=== PATIENT | female | born 1980 | race Caucasian/White ===

== ENCOUNTER 2016-10-04 19:35 | Emergency (ER) | payer OTHER ==
[~2016-10-04] VITALS: Ht 167.6 cm; Wt 59.4 kg
[~2016-10-04 19:35] MED LIST: FERR1TAB23 PO; OMEG10007 PO; PRC10 PO; PRENTAB26 PO
[2016-10-04 19:38] VITALS: TEMP 36.9; Ht 167.6 cm; Wt 59.4 kg
[2016-10-04] MEDS ORDERED: ONDANSETRON INJ 2 MG/ML 2 ML VIAL IV STA (20:11)
[2016-10-04] MEDS ORDERED: SODIUM CHLORIDE 0.9% 1000ML 1,000 ML IV ONE (20:15)
[2016-10-04] MEDS ORDERED: ACETAMINOPHEN IV 100 ML IV ONE (20:15)
[2016-10-04] MEDS ORDERED: OPTIRAY 320 IV PRN (20:30)
[2016-10-04 20:42] LABS: BASO % 0.3 %; BASO ABS # 0.03 K/uL (0-0.2); COMPLETE YES; EOS % 1.3 %; HEMATOCRIT 39.4 % (37-47); IG% 0.1 %; MEAN CELL VOLUME 89.7 fL (80-100); MEAN CORPUSCULAR HEMOGLOBIN 30.3 pg (25-34); MEAN CORPUSCULAR HGB CONC 33.8 g/dl (32-36); MONO % 5.8 %; NEUT % 67.5 %; PLATELET COUNT 398 K/uL (130-400); RED BLOOD COUNT 4.39 M/uL (4.2-5.4); WHITE BLOOD COUNT 10.02 K/uL (4.8-10.8)
[2016-10-04 21:03] LABS: BUN/CREATININE RATIO 9.3 (10-20); CALCIUM 8.7 mg/dl (8.5-10.1); CREATININE 0.81 mg/dl (0.60-1.20); POTASSIUM 3.6 mmol/L (3.5-5.1)
[2016-10-04 21:14] LABS: ALB/GLOB RATIO 0.9 (0.9-2); THYROID STIMULATING HORMONE 0.609 uIu/ml (0.300-4.500)
[2016-10-04 21:34] LABS: LYME DISEASE AB IGG NEG (NEG); LYME DISEASE AB IGM NEG (NEG)
--- NOTE | 2016-10-04 21:55 | DIAGNOSTIC IMAGING REPORT ---
CT ANGIOGRAPHY HEAD COMBO CT DOSE: 1108.64 mGy.cm CLINICAL HISTORY: Severe headache. Neck pain. TECHNIQUE: Unenhanced images were obtained to the brain. CT angiography was then performed in a dynamic helical fashion during intravenous administration 110 cc of Optiray 320. MIP imaging was obtained. COMPARISON STUDY: None. FINDINGS: On noncontrast images, no intra or extra-axial mass lesions are visualized. There is no CT evidence of acute cortical infarction. There is no midline shift. There is no acute hemorrhage. There is no hydrocephalus. On postcontrast images, there are no lesion suspicious for aneurysm. There are no major intracranial branch occlusions. There are no pathologically enhancing masses. There is no evidence of dural venous sinus thrombosis. IMPRESSION: Normal study Electronically signed by: Best Dickson M.D. 10/04/2016 9:54 PM Dictated Date/Time: 10/04/2016 9:50 PM
--- NOTE | 2016-10-04 21:59 | DIAGNOSTIC IMAGING REPORT ---
CT NECK ANGIO WITH CONTRAST CLINICAL HISTORY: Severe neck pain. COMPARISON STUDY: No previous studies for comparison. TECHNIQUE: CT angiography was performed from the aortic arch to the skull base. MIP imaging was performed. The patient was scanned in a dynamic helical fashion during intravenous administration of 110 cc of Optiray 320. CT DOSE: Technique: CT angiogram of the carotid and vertebral arteries was obtained using intravenous contrast and 3-D reconstruction. NASCET criteria was utilized. Findings: The a sitting thoracic aorta measures 3.7 cm in diameter. No intimal flap is visualized. The right carotid revealed no evidence of aneurysm and no evidence of dissection. There is no evidence of hemodynamic significant stenosis. The left carotid revealed no evidence of hemodynamic significant stenosis. There is no evidence of aneurysm. There is no evidence of dissection. There is no evidence of hemodynamically significant vertebral stenosis. There is no evidence of vertebral dissection. The examination is mildly compromised due to motion artifact. IMPRESSION: No evidence of hemodynamically significant carotid or vertebral artery stenosis. No evidence of dissection. Electronically signed by: Best Dickson M.D. 10/04/2016 9:57 PM Dictated Date/Time: 10/04/2016 9:54 PM
[2016-10-04 22:04] LABS: MANUAL MICROSCOPIC REQUIRED? NO; REVIEW REQ? NO; URINE APPEARANCE CLEAR (CLEAR); URINE BILIRUBIN NEG (NEG); URINE COLOR YELLOW; URINE EPITHELIAL CELL AUTO 0-5 /lpf (0-5); URINE NITRITE NEG (NEG); URINE SPECIFIC GRAVITY 1.029 (1.000-1.030); UROBILINOGEN NEG (NEG); ZZUR CULT IF INDIC CLEAN CATCH NO
[2016-10-04] MEDS ORDERED: KETOROLAC TROMETHAMINE 30 MG/ML VIAL IV STA (22:31)
[2016-10-04 23:38] VITALS: BP 157/99; PULSE 58; O2SAT 97
[2016-10-05] MEDS ORDERED: ONDANSETRON HOME PACK 4MG OD TAB PO ONE
[2016-10-05] MEDS ORDERED: OXYCODONE IR HOME PACK PO ONE
--- NOTE | 2016-10-05 01:18 | EMERGENCY ROOM VISIT NOTE ---
History First contact with patient: 19:44 Chief Complaint: HEADACHE Stated Complaint: SEVERE HEADACHE AND NECK PAIN History of Present Illness The patient is a 35 year old female who presents to the Emergency Room with complaints of severe headache for the past one day. The patient does not have a history of headaches in the past. She has not had relief of symptoms at home with [id number] analgesics. She states that her pain goes over the top of her head and down into the bilateral neck posteriorly. She does not have injury or trauma. No photophobia, lightheadedness, dizziness, or vision changes. She has not had fever or chills. She went to an urgent care clinic, who diagnosed her with a tension headache, however she continued to have pain and now presents to the ER for evaluation. The patient does not have numbness or paresthesias. She considers herself otherwise usually healthy. She rates her discomfort an 8/10. Review of Systems More than 10 systems were reviewed and otherwise negative with the exception of history of present illness. Past Medical/Surgical History Medical Problems: (1) contractions (2) Vaginal bleeding during , antepartum Family History No pertinent family history Social History Smoking Status: Never Smoker Housing Status: lives with family Current/Historical Medications No Active Prescriptions or Reported Meds Allergies Coded Allergies: Banana (Verified Allergy, Mild, GI SYMPTOMS, 02/17/16) vomiting Latex1 -Allergic Contact Dermititis (Verified Allergy, Mild, RASH, ) Pineapple (Verified Allergy, Unknown, GI SYMPTOMS, 02/17/16) vomiting with fresh pineapple Broccoli (Verified Adverse Reaction, Mild, GI SYMPTOMS, 02/17/16) vomiting Physical Exam Vital Signs Date Time Temp Pulse Resp B/P (MAP) Pulse Ox O2 Delivery O2 Flow Rate FiO2 10/04/16 23:38 58 18 157/99 97 Room Air 10/04/16 21:38 62 18 145/86 100 Room Air 10/04/16 19:38 36.9 74 18 155/102 98 Room Air Pain Rating (0-10): 7.0 Physical Exam VITALS: Vitals are noted on the nurse's note and reviewed by myself. Vital signs stable. GENERAL: Well-developed, well-nourished, white female, who is in no acute distress and resting comfortably. Patient is cooperative with the examination. HEAD: Normocephalic atraumatic. EARS: External ear normal. External auditory canals clear, tympanic membranes pearly [place] without erythema or effusion bilaterally. EYES: Pupils equal round and reactive to light and accommodation. Conjunctivae without injection, sclerae without icterus. Extraocular movements intact. No photophobia NOSE: Patent, turbinates without inflammation or discharge. MOUTH: Mucous membranes moist. Tonsils are not enlarged. Pharynx without erythema, blood, or exudate. Uvula midline. Airway patent. NECK: Supple without nuchal rigidity. No lymphadenopathy. No thyromegaly. Cervical spine is nontender. No meningismus. Negative Brudzinski's and Kernig' s. HEART: Regular rate and rhythm without murmurs gallops or rubs. LUNGS: Clear to auscultation bilaterally without wheezes, rales or rhonchi. No retractions or accessory muscle use. ABDOMEN: Positive normal bowel sounds x 4. Soft, nontender, without masses or organomegaly. No guarding or rebound tenderness. MUSCULOSKELETAL: No muscle atrophy, erythema, or edema noted. Full range of motion without joint tenderness in all extremities. No tenderness to palpation. Normal gait. Strength 5/5 throughout. NEURO: Patient was alert and oriented to person place and time. CN II through XII grossly intact. Deep tendon reflexes 2+ throughout. No focal neurological deficits SKIN: The skin was without rashes, erythema, edema, or bruising. Capillary reflex less than 2 seconds. Medical Decision & Procedures ER Provider Diagnostic Interpretation: CT NECK ANGIO WITH CONTRAST CLINICAL HISTORY: Severe neck pain. COMPARISON STUDY: No previous studies for comparison. TECHNIQUE: CT angiography was performed from the aortic arch to the skull base. MIP imaging was performed. The patient was scanned in a dynamic helical fashion during intravenous administration of 110 cc of [address] DOSE: Technique: CT angiogram of the carotid and vertebral arteries was obtained using intravenous contrast and 3-D reconstruction. NASCET criteria was utilized. Findings: The a sitting thoracic aorta measures 3.7 cm in diameter. No intimal flap is visualized. The right carotid revealed no evidence of aneurysm and no evidence of dissection. There is no evidence of hemodynamic significant stenosis. The left carotid revealed no evidence of hemodynamic significant stenosis. There is no evidence of aneurysm. There is no evidence of dissection. There is no evidence of hemodynamically significant vertebral stenosis. There is no evidence of vertebral dissection. The examination is mildly compromised due to motion artifact. IMPRESSION: No evidence of hemodynamically significant carotid or vertebral artery stenosis. No evidence of dissection. CT ANGIOGRAPHY HEAD COMBO CT DOSE: 1108.64 mGy.cm CLINICAL HISTORY: Severe headache. Neck pain. TECHNIQUE: Unenhanced images were obtained to the brain. CT angiography was then performed in a dynamic helical fashion during intravenous administration 110 cc of Optiray 320. MIP imaging was obtained. COMPARISON STUDY: None. FINDINGS: On noncontrast images, no intra or extra-axial mass lesions are visualized. There is no CT evidence of acute cortical infarction. There is no midline shift. There is no acute hemorrhage. There is no hydrocephalus. On postcontrast images, there are no lesion suspicious for aneurysm. There are no major intracranial branch occlusions. There are no pathologically enhancing masses. There is no evidence of dural venous sinus thrombosis. IMPRESSION: Normal study Laboratory Results 10/04/16 20:34 Red Blood Count 4.39, Mean Corpuscular Volume 89.7, Mean Corpuscular Hemoglobin 30.3, Mean Corpuscular Hemoglobin Concent 33.8, Mean Platelet Volume 9.0, Neutrophils (%) (Auto) 67.5, Lymphocytes (%) (Auto) 25.0, Monocytes (%) (Auto) 5.8, Eosinophils (%) (Auto) 1.3, Basophils (%) (Auto) 0.3, Neutrophils # (Auto) 6.77, Lymphocytes # (Auto) 2.50, Monocytes # (Auto) 0.58, Eosinophils # (Auto) 0.13, Basophils # (Auto) 0.03 10/04/16 20:34 Test 10/04/16 20:34 10/04/16 21:50 White Blood Count 10.02 K/uL (4.8-10.8) Red Blood Count 4.39 M/uL (4.2-5.4) Hemoglobin 13.3 g/dL (12.0-16.0) Hematocrit 39.4 % (37-47) Mean Corpuscular Volume 89.7 fL (80-100) Mean Corpuscular Hemoglobin 30.3 pg (25-34) Mean Corpuscular Hemoglobin Concent 33.8 g/dl (32-36) Platelet Count 398 K/uL (130-400) Mean Platelet Volume 9.0 fL (7.4-10.4) Neutrophils (%) (Auto) 67.5 % Lymphocytes (%) (Auto) 25.0 % Monocytes (%) (Auto) 5.8 % Eosinophils (%) (Auto) 1.3 % Basophils (%) (Auto) 0.3 % Neutrophils # (Auto) 6.77 K/uL (1.4-6.5) Lymphocytes # (Auto) 2.50 K/uL (1.2-3.4) Monocytes # (Auto) 0.58 K/uL (0.11-0.59) Eosinophils # (Auto) 0.13 K/uL (0-0.5) Basophils # (Auto) 0.03 K/uL (0-0.2) RDW Standard Deviation 41.4 fL (36.4-46.3) RDW Coefficient of Variation 12.7 % (11.5-14.5) Immature Granulocyte % (Auto) 0.1 % Immature Granulocyte # (Auto) 0.01 K/uL (0.00-0.02) Anion Gap 9.0 mmol/L (3-11) Est Creatinine Clear Calc Drug Dose 91.6 ml/min Estimated GFR () 109.8 Estimated GFR (Non- 94.8 BUN/Creatinine Ratio 9.3 (10-20) Calcium Level 8.7 mg/dl (8.5-10.1) Total Bilirubin 0.3 mg/dl (0.2-1) Aspartate Amino Transf (AST/SGOT) 9 U/L (15-37) Alanine Aminotransferase (ALT/SGPT) 16 U/L (12-78) Alkaline Phosphatase 42 U/L (45-117) Total Protein 7.3 gm/dl (6.4-8.2) Albumin 3.5 gm/dl (3.4-5.0) Globulin 3.8 gm/dl (2.5-4.0) Albumin/Globulin Ratio 0.9 (0.9-2) Thyroid Stimulating Hormone (TSH) 0.609 uIu/ml (0.300-4.500) Lyme Disease IgG Antibody NEG (NEG) Lyme Disease IgM Antibody NEG (NEG) Urine Color YELLOW Urine Appearance CLEAR (CLEAR) Urine pH 5.0 (4.5-7.5) Urine Specific [place] 1.029 (1.000-1.030) Urine Protein NEG (NEG) Urine Glucose (UA) NEG (NEG) Urine Ketones TRACE (NEG) Urine Occult Blood TRACE (NEG) Urine Nitrite NEG (NEG) Urine Bilirubin NEG (NEG) Urine Urobilinogen NEG (NEG) Urine Leukocyte Esterase TRACE (NEG) Urine WBC (Auto) 1-5 /hpf (0-5) Urine RBC (Auto) 0-4 /hpf (0-4) Urine Hyaline Casts (Auto) 0 /lpf (0-5) Urine Epithelial Cells (Auto) 0-5 /lpf (0-5) Urine Bacteria (Auto) NEG (NEG) Urine Test NEG (NEG) Medications Administered Medications (Trade) Dose Ordered Sig/Raine Route Start Time Stop Time Status Last Admin Dose Admin Sodium Chloride 1,000 ml @ 999 mls/hr Q1H1M ONCE IV 10/04/16 20:15 10/04/16 21:15 DC 10/04/16 21:02 999 MLS/HR Acetaminophen 100 ml @ 400 mls/hr NOW ONCE IV 10/04/16 20:15 10/04/16 20:29 DC 10/04/16 21:02 400 MLS/HR Ondansetron HCl (Zofran Inj) 4 mg NOW STAT IV 10/04/16 20:11 10/04/16 20:16 DC 10/04/16 21:00 4 MG Ketorolac Tromethamine (Toradol Inj) 30 mg NOW STAT IV 10/04/16 22:31 10/04/16 22:32 DC 10/04/16 22:50 30 MG Oxycodone HCl (Roxicodone Immediate Rel 5MG Home Pack) 1 homepack UD ONCE PO 10/05/16 00:00 10/05/16 00:01 DC 10/05/16 00:01 1 HOMEPACK Ondansetron HCl (ZOFRAN ODT 4MG Home Pack) 1 homepack UD ONCE PO 10/05/16 00:00 10/05/16 00:01 DC 10/05/16 00:01 1 HOMEPACK ED Course Physical exam and history were performed. Nursing notes and EMR were reviewed. Patient appears to have a headache with neck pain for the past one day. The patient does not have a history of migraine headaches, and has not been seen previously for this. She has no history of previous imaging. Her examination appears fairly benign, and she certainly does not have exam findings consistent with meningitis. IV access was established and labs were obtained. CT scans were ordered. The patient and I discussed pain medications, however she prefers to avoid medication that will make her tired, as she would like to drive home tonight. Because of this she was initially given 1 g IV Tylenol, and then after imaging was given 30 mg IV Toradol. The patient's blood work is as above and was reviewed. She does not have a significant elevated white blood cell count, gross anemia, bandemia, or significant electrolyte imbalance. TSH is normal. Lyme is negative. CT scans of the head and neck are without evidence of bleeding, aneurysm, or dissection. I reevaluated the patient multiple times throughout the course of her stay. She did have some improvement of her symptoms after IV Tylenol and IV Toradol. She continues to be without evidence of meningitis, and we did discuss performing a lumbar puncture. Utilizing shared decision making the patient elected to defer this currently. I also discussed with her the possibility of MRI tonight, and she felt this was reasonable to defer as well. She was overall feeling well enough for discharge home, and this seems reasonable. I feel the patient should follow-up with her primary care physician on a short interval, preferably in the next few days. I will give her a home pack of OxyIR and home pack of Zofran. The patient was thoroughly invited back to the ER with any worsening of her symptoms, and if this occurs we will likely need to do a lumbar puncture and possibly MRI. The patient voiced understanding of this and was pleased. She rated her discomfort a 7/10 at the time of departure. The chart was completed utilizing [employer] Speech Voice Recognition Software. Grammatical errors, random word insertions, pronoun errors, and incomplete sentences are an occasional consequence of this system due to software limitations, ambient noise, and hardware issues. Any formal questions or concerns about the content, text, or information contained within the body of this dictation should be directly addressed to the provider for clarification. . Medical Decision The differential diagnosis includes, but is not limited to: acute intracranial bleed, meningitis, encephalitis, mass or mass effect, sinusitis, infection, tumor, headache, temporal arteritis and carbon monoxide exposure, and migraine. Impression Primary Impression: Headache Departure Information Dispostion Home / Self-Care Condition GOOD Prescriptions No Active Prescriptions or Reported Meds Referrals Shira Godinez D.O. (PCP) Forms HOME CARE DOCUMENTATION FORM, IMPORTANT VISIT INFORMATION Patient Instructions My [facility] Additional Instructions You were seen and evaluated today on an emergency basis only. This is not a substitute for, or an effort to provide, complete comprehensive medical care. It is not possible to recognize and treat all injuries or illnesses in a single emergency department visit. For this reason it is recommended that you followup with your primary care physician or neurologist this week for ongoing care and evaluation. Rest today in a quiet, peaceful, dark environment and get a full 8-10 hrs of sleep tonight. Avoid loud noises, smoke/smoking, alcohol, bright lights, stress, or physical exertion today to minimize the chance the headache may return. Continue current medications. Ibuprofen(Motrin, Advil) may be used for fever or pain. Use 600mg every six hours as needed. Take with food. Avoid using more than 2400mg in a 24 hour period. Do not use 2400mg per day for more than three consecutive days without physician direction. Prolonged inappropriate use can lead to stomach upset or ulcers. (AND/OR) Acetaminophen(Tylenol) may be used for fever or pain. Use 1000mg every six hours as needed. Avoid using more than 4000mg in a 24 hour period. Oxycodone (OxyIR) 5mg (homepack): Take ONE pill every SIX hours for breakthrough pain. Avoid alcohol, operating machinery or dangerous equipment, working on ladders or roofs, DRIVING, or situations where being under the influence may be dangerous. It is recommended to use an zhyw-tyv-jyhazrd stool softener such as Colace, 100mg twice daily while taking this medication to avoid constipation. Zofran 1 tablet every 6 hrs as needed for nausea. Return to the ER for passing out, worsening headache, vision problems, neck stiffness/pain, fevers, vomiting, worsening of your condition, or as needed.
== END 2016-10-05 00:04 | disposition home or self-care (01) ==
LOC: C.EDB 19:35 → C.EDD 10-05 00:04
DX: R51 Headache (principal)